=== PATIENT | male | born 1960 | race African-American/Black ===

== ENCOUNTER 2017-09-19 13:01 | Inpatient (IN) | payer OTHER ==
[2017-09-19 16:27] VITALS: BMI 24.3
--- NOTE | 2017-09-19 20:47 | HP ---
CIWA Score - CIWA Score Nausea/Vomitin-No Nausea/No Vomiting Muscle Tremors: None Anxiety: 4-Mod. Anxious/Guarded Agitation: 4-Moderately Restless Paroxysmal Sweats: 3 Orientation: 1-Uncertain about Date Tacttile Disturbances: 3-Moderate Itch/Numb/Burn Auditory Disturbances: 0-None Visual Disturbances: 0-None Headache: 0-None Present CIWA-Ar Total Score: 15 Admission ROS BHS - HPI Chief Complaint: C/O WITHDRAWAL SX'S. SEEKING DETOX FOR ALCOHOL DEPENDENCE Allergies/Adverse Reactions: Allergies Allergy/AdvReac Type Severity Reaction Status Date / Time No Known Allergies Allergy Verified 09/19/17 17:32 History of Present Illness: 57 Y.O. MALE WITH LONG HX/O ALCOHOLISM HERE FOR DETOX. SELF REFERRED. KNOWN TO THIS PROGRAM LAST HERE MANY YEARS AGO. DENIES ANY INPATIENT DETOX SERVICES THIS YEAR. REPORTS LONGEST CLEAN TIME 3 YEARS WHILE INCARCERATED. DENIES LEGALS Exam Limitations: No Limitations - Ebola screening Have you traveled outside of the country in the last 21 days: No Have you had contact with anyone from an Ebola affected area: No Have you been sick,other than usual withdrawal symptoms: No Do you have a fever: No - Review of Systems Constitutional: Chills, Loss of Appetite, Malaise, Night Sweats EENT: reports: No Symptoms Reported Respiratory: reports: No Symptoms reported Cardiac: reports: No Symptoms Reported GI: reports: Constipated, Poor Appetite, Poor Fluid Intake : reports: Other (NEUROGENIC BLADDER. SELF CATHETERIZES) Musculoskeletal: reports: Back Pain Integumentary: reports: No Symptoms Reported Neuro: reports: Other (NEUROGENIC BLADDER) Endocrine: reports: No Symptoms Reported Hematology: reports: No Symptoms Reported Psychiatric: reports: Depressed Other Systems: Reviewed and Negative Patient History - Patient Medical History Hx Anemia: No Hx Asthma: No Hx Chronic Obstructive Pulmonary Disease (COPD): No Hx Cancer: No Hx Cardiac Disorders: No (CONGENITAL HEART MURMUR) Hx Congestive Heart Failure: No Hx Hypertension: Yes Hx Hypercholesterolemia: No Hx Pacemaker: No HX Cerebrovascular Accident: No Hx Seizures: No Hx Dementia: No Hx Diabetes: No Hx Gastrointestinal Disorders: No Hx Liver Disease: No Hx Genitourinary Disorders: Yes (NEUROGENIC BLADDER REQUIRES SELF CATH) Hx Sexually Transmitted Disorders: Yes (HIV) Hx Renal Disease (ESRD): No Hx Thyroid Disease: No Hx Human Immunodeficiency Virus (HIV): Yes (1998) Hx Hepatitis C: No Hx Depression: Yes Hx Suicide Attempt: No Hx Bipolar Disorder: No Hx Schizophrenia: No Other Medical History: DENIES - Patient Surgical History Past Surgical History: Yes Hx Neurologic Surgery: Yes (Spinal sx from [facility]) Anesthesia Reaction: No - PPD History Previous Implant?: Yes Documented Results: Negative w/o proof Implanted On Prior [facility] Admission?: No PPD to be Administered?: Yes - Smoking Cessation Smoking history: Current every day smoker Aproximately how many cigarettes per day: 3 Cigars Per Day: 0 Hx Chewing Tobacco Use: No Initiated information on smoking cessation: Yes 'Breaking Loose' booklet given: 09/19/17 - Substance & Tx. History Hx Alcohol Use: Yes Hx Substance Use: Yes Substance Use Type: Alcohol, Cocaine Hx Substance Use Treatment: Yes ([facility]) - Substances Abused Alcohol Route: Oral Frequency: 3-6 times per week Amount used: fifth of vodka Age of first use: 14 Date of Last Use: 09/18/17 Crack Route: Smoking Frequency: 1-2 times per week Amount used: 20 bags Age of first use: 21 Date of Last Use: 09/17/17 Family Disease History - Family Disease History Family Disease History: Heart Disease: Father (), CA: Mother () Admission Physical Exam S - Vital Signs Vital Signs: Vital Signs - 24 hr 09/19/17 16:23 Temperature 96.4 F L Pulse Rate 64 Respiratory 20 Rate Blood Pressure 116/71 - Physical General Appearance: Yes: Appropriately Dressed, Irritable HEENTM: Yes: EOMI, Normocephalic, Normal Voice, GERTRUDE, Pharynx Normal Respiratory: Yes: Chest Non-Tender, Lungs Clear, Normal Breath Sounds, No Respiratory Distress, No Accessory Muscle Use Neck: Yes: No masses,lesions,Nodules, Supple, Trachea in good position Breast: Yes: Breast Exam Deferred Cardiology: Yes: Regular Rhythm, Regular Rate, S1, S2 Abdominal: Yes: Normal Bowel Sounds, Non Tender, Soft Genitourinary: Yes: Other (NEUROGENIC BLADDER. REQUIRING SELF CATH) Back: Yes: Normal Inspection Musculoskeletal: Yes: full range of Motion, Gait Steady Extremities: Yes: Normal Capillary Refill, Non-Tender, Other (L HAND FOURTH DIGIT CONTRACTED WITH LIMITED ROM) Neurological: Yes: Fully Oriented, Alert, Motor Strength 5/5 Integumentary: Yes: Normal Color, Dry, Warm Lymphatic: Yes: Within Normal Limits - Diagnostic (1) Alcohol dependence with uncomplicated withdrawal Current Visit: Yes Status: Chronic (2) Cocaine dependence, uncomplicated Current Visit: Yes Status: Chronic (3) Nicotine dependence Current Visit: Yes Status: Chronic Qualifiers: Nicotine product type: cigarettes Substance use status: uncomplicated Qualified Code(s): F17.210 - Nicotine dependence, cigarettes, uncomplicated (4) HIV (human immunodeficiency virus infection) Current Visit: Yes Status: Chronic (5) HTN (hypertension) Current Visit: Yes Status: Chronic Qualifiers: Hypertension type: essential hypertension Qualified Code(s): I10 - Essential (primary) hypertension (6) Neurogenic bladder Current Visit: Yes Status: Chronic (7) Self-catheterizes urinary bladder Current Visit: Yes Status: Chronic (8) Heart murmur Current Visit: Yes Status: Chronic (9) Constipation Current Visit: Yes Status: Chronic Qualifiers: Constipation type: unspecified constipation type Qualified Code(s): K59.00 - Constipation, unspecified Cleared for Admission [facility] - Detox or Rehab [facility] Level of Care: Medically Managed Detox Regimen/Protocol: Librium Claeared for Rehab Admission: No S Breath Alcohol Content Breath Alcohol Content: 0 Urine Drug Screen - Results Drug Screen Negative: No Urine Drug Screen Results: VICENTE-Cocaine
[2017-09-19] MEDS ORDERED: ACETAMINOPHEN 325 MG TABLET (FP) PO PRN (20:57)
[2017-09-19] MEDS ORDERED: hydrOXYzine PAMOATE 50 MG CAPSULE (FP) PO PRN (20:57)
[2017-09-19] MEDS ORDERED: P-EPHED 60MG/TRIPROLIDI 2.5MG TABLET PO PRN (20:57)
[2017-09-19] MEDS ORDERED: IBUPROFEN 400 MG TABLET (FP) PO PRN (20:57)
[2017-09-19] MEDS ORDERED: MAGNESIUM CITRATE 300 ML BOTTLE PO PRN (20:57)
[2017-09-19] MEDS ORDERED: MAG HYDROX/AL HYDROX/SIMETH 30 ML UNIT-DOSE CUP PO PRN (20:57)
[2017-09-19] MEDS ORDERED: NICOTINE POLACRILEX 4 MG GUM BC PRN (20:57)
[2017-09-19] MEDS ORDERED: guaiFENesin/D-METHORPHAN HB 10 ML UNIT-DOSE CUPS PO PRN (20:57)
[2017-09-19] MEDS ORDERED: LOPERAMIDE HCL 2 MG CAPSULE PO PRN (20:57)
[2017-09-19] MEDS ORDERED: chlordiazePOXIDE HCL 25 MG CAPSULE PO PRN (20:57)
[2017-09-19] MEDS ORDERED: MAGNESIUM HYDROX 2400MG/30ML ORAL SUSPENSION 30 ML CUP PO PRN (20:57)
[2017-09-19] MEDS ORDERED: MENTHOL/PHENOL 1 EACH UD MM PRN (20:57)
[2017-09-19] MEDS: THIAMINE HCL 100 MG TABLET (FP) PO SCH (21:56)
[2017-09-19] MEDS ORDERED: MELATONIN 5 MG TABLETS PO PRN (22:00)
[2017-09-19] MEDS: chlordiazePOXIDE HCL 25 MG CAPSULE PO SCH (22:04)
[2017-09-19] MEDS: DOCUSATE SODIUM 100 MG CAPSULE (FP) PO SCH (22:04)
[2017-09-20] MEDS: chlordiazePOXIDE HCL 25 MG CAPSULE PO SCH ×4 (06:03→22:23)
--- NOTE | 2017-09-20 09:48 | CONSULT ---
[facility] Psychiatric Consult - Data Date of interview: 09/20/17 Admission source: [facility] Identifying data: Pt. is a 57 year old single male, father of one, unemployed, living alone, and receiving SSI. This is patient's first admission to [facility]. Pt. admitted to for alcohol and cocaine dependence. Substance Abuse History: Following information confirmed with Mr. Morrison: Smoking Cessation. Smoking history: Current every day smoker. Aproximately how many cigarettes per day: 3. Cigars Per Day: 0. Hx Chewing Tobacco Use: No. Initiated information on smoking cessation: Yes. 'Breaking Loose' booklet given: 09/19/17. - Substance & Tx. History. Hx Alcohol Use: Yes. Hx Substance Use: Yes. Substance Use Type: Alcohol, Cocaine. Hx Substance Use Treatment: Yes ([facility]). - Substances Abused. Alcohol. Route: Oral. Frequency: 3-6 times per week. Amount used: fifth of vodka. Age of first use: 14. Date of Last Use: 09/18/17. Crack. Route: Smoking. Frequency: 1-2 times per week. Amount used: 20 bags. Age of first use: 21. Date of Last Use : 09/17/17 Medical History: Cogential heart murmur, neurogenic bladder requires self cath, spinal sx from [facility] Psychiatric History: Pt. denies h/o psychiatric hospitalization, outpatient treatment, and suicide attempts. Physical/Sexual Abuse/Trauma History: Denies. Mental Status Exam - Mental Status Exam Alert and Oriented to: Time, Place, Person Cognitive Function: Good Patient Appearance: Well Groomed Mood: Hopeful Affect: Appropriate Patient Behavior: Appropriate, Cooperative Speech Pattern: Clear, Appropriate Voice Loudness: Normal Thought Process: Goal Oriented Thought Disorder: Not Present Hallucinations: Denies Suicidal Ideation: Denies Homicidal Ideation: Denies Insight/Judgement: Poor Sleep: Fair Appetite: Fair Muscle strength/Tone: Normal Gait/Station: Normal Psychiatric Findings - Problem List ([place] 1, 2,3) (1) Alcohol dependence with uncomplicated withdrawal Current Visit: Yes Status: Chronic (2) Cocaine dependence, uncomplicated Current Visit: Yes Status: Chronic (3) Nicotine dependence Current Visit: Yes Status: Chronic Qualifiers: Nicotine product type: cigarettes Substance use status: uncomplicated Qualified Code(s): F17.210 - Nicotine dependence, cigarettes, uncomplicated (4) Substance induced mood disorder Current Visit: Yes Status: Suspected - Initial Treatment Plan Initial Treatment Plan: Psychoeducation provided. Detoxification provided. Observation.
[2017-09-20] MEDS: PRENATAL VITAMINS W/ FOLIC ACID TABLET (FP) PO SCH (10:13)
[2017-09-20] MEDS: NIFEdipine E.R 60 MG TABLET (UD) PO SCH (10:14)
[2017-09-20 10:29] LABS: HEMATOCRIT 36.6 % (35.4-49); HEMOGLOBIN 12.1 GM/dL (11.7-16.9); MCH 32.6 pg (25.7-33.7); MCHC 32.9 g/dl (32.0-35.9); MEAN CELL VOLUME 98.9 fl (80-96); MEAN PLT VOLUME 8.3 fl (7.5-11.1); PLATELET COUNT 313 K/MM3 (134-434); RDW 13.3 % (11.9-15.9); WHITE BLOOD COUNT 3.8 K/mm3 (4.0-10.0)
[2017-09-20 10:53] LABS: ALBUMIN 3.5 g/dl (3.4-5.0); ANION GAP 4 (8-16); BLOOD UREA NITROGEN 19 mg/dL (7-18); CALCIUM 8.8 mg/dL (8.5-10.1); CHLORIDE 108 mmol/L (98-107); CO2 30 mmol/L (21-32); GLUCOSE,RANDOM 110 mg/dL (74-106); POTASSIUM 3.7 mmol/L (3.5-5.1); SGPT/ALT 24 U/L (12-78); SODIUM 142 mmol/L (136-145)
[2017-09-20 11:00] LABS: ALK PHOS 63 U/L (45-117); CREATININE 1.1 mg/dL (0.7-1.3); SGOT/AST 17 U/L (15-37); TOT PROT 7.4 g/dl (6.4-8.2)
[2017-09-20 11:08] LABS: BILIRUBIN,TOTAL < 0.1 mg/dL (0.2-1.0)
--- NOTE | 2017-09-20 13:31 | EKG ---
Test Reason : Blood Pressure : / mmHG Vent. Rate : 055 BPM Atrial Rate : 055 BPM P-R Int : 146 ms QRS Dur : 092 ms QT Int : 410 ms P-R-T Axes : 051 040 049 degrees QTc Int : 392 ms SINUS BRADYCARDIA POSSIBLE LEFT ATRIAL ENLARGEMENT BORDERLINE ECG NO PREVIOUS ECGS AVAILABLE Confirmed by YOANA BENEDICT MD ([id number]) on 09/20/2017 1:31:26 PM Referred By: Confirmed By:YOANA BENEDICT MD
[2017-09-20] MEDS: AMMONIUM LACTATE 12% LOTION 225 GM BOTTLE TP SCH ×2 (13:42→22:24)
--- NOTE | 2017-09-20 15:28 | PN ---
[facility] CIWA - CIWA Score Nausea/Vomitin-No Nausea/No Vomiting Muscle Tremors: 2 Anxiety: 4-Mod. Anxious/Guarded Agitation: 3 Paroxysmal Sweats: 3 Orientation: 0-Oriented Tacttile Disturbances: 3-Moderate Itch/Numb/Burn Auditory Disturbances: 1-Very Mild Visual Disturbances: 2-Mild Sensitivity Headache: 0-None Present CIWA-Ar Total Score: 18 BHS Progress Note (SOAP) Subjective: Constipation, Sweating, Itching, Anxious. Objective: PATIENT A & O X 3, OBSERVED AMBULATING ON UNIT. NO ACUTE DISTRESS. 09/20/17 15:26 Vital Signs Temperature 96.1 F L 09/20/17 13:10 Pulse Rate 67 09/20/17 13:10 Respiratory Rate 18 09/20/17 13:10 Blood Pressure 106/66 09/20/17 13:10 O2 Sat by Pulse Oximetry (%) Laboratory Tests 09/20/17 09/20/17 07:00 07:00 WBC 3.8 L RBC 3.70 L Hgb 12.1 Hct 36.6 MCV 98.9 H MCH 32.6 MCHC 32.9 RDW 13.3 Plt Count 313 MPV 8.3 Sodium 142 Potassium 3.7 Chloride 108 H Carbon Dioxide 30 Anion Gap 4 L BUN 19 H Creatinine 1.1 Creat Clearance w eGFR > 60 Random Glucose 110 H Calcium 8.8 Total Bilirubin < 0.1 L AST 17 ALT 24 Alkaline Phosphatase 63 Total Protein 7.4 Albumin 3.5 LABS NOTED. RPR, UA RESULTS PENDING. 09/20/17 15:27 Assessment: 09/20/17 15:26 WITHDRAWAL SYMPTOMS. Plan: CONTINUE DETOX. PRN MOM FOR CONSTIPATION. INCREASE DAILY PO FLUID INTAKE.
[2017-09-20] MEDS: THIAMINE HCL 100 MG TABLET (FP) PO SCH (22:23)
[2017-09-20] MEDS: DOCUSATE SODIUM 100 MG CAPSULE (FP) PO SCH (22:23)
[2017-09-21] MEDS: chlordiazePOXIDE HCL 25 MG CAPSULE PO SCH ×3 (05:22→19:13)
[2017-09-21 09:54] LABS: URINE APPEARANCE CLEAR; URINE BILIRUBIN NEGATIVE (<2.0 mg/dL); URINE BLOOD NEGATIVE (NEGATIVE); URINE COLOR STRAW; URINE GLUCOSE (UA) NEGATIVE (NEGATIVE); URINE KETONE NEGATIVE (NEGATIVE); URINE LEUK ESTERASE NEGATIVE (NEGATIVE); URINE NITRITE NEGATIVE (NEGATIVE); URINE PROTEIN NEGATIVE (NEGATIVE); URINE UROBILINOGEN NEGATIVE mg/dL (0.2-1.0)
[2017-09-21] MEDS: PRENATAL VITAMINS W/ FOLIC ACID TABLET (FP) PO SCH (10:25)
[2017-09-21] MEDS: AMMONIUM LACTATE 12% LOTION 225 GM BOTTLE TP SCH ×2 (10:25→22:22)
[2017-09-21] MEDS: NIFEdipine E.R 60 MG TABLET (UD) PO SCH (10:25)
--- NOTE | 2017-09-21 13:44 | PN ---
S CIWA - CIWA Score Nausea/Vomitin-No Nausea/No Vomiting Muscle Tremors: 2 Anxiety: 3 Agitation: 2 Paroxysmal Sweats: 3 Orientation: 0-Oriented Tacttile Disturbances: 2-Mild Itch/Numbness/Burn Auditory Disturbances: 0-None Visual Disturbances: 2-Mild Sensitivity Headache: 0-None Present CIWA-Ar Total Score: 14 BHS Progress Note (SOAP) Subjective: Sweating, Fatigue, Anxious, Tremors. Objective: PATIENT A & O X 3. NO ACUTE DISTRESS. 09/21/17 13:42 Vital Signs Temperature 97.3 F L 09/21/17 09:07 Pulse Rate 70 09/21/17 09:07 Respiratory Rate 16 09/21/17 09:07 Blood Pressure 106/64 09/21/17 09:07 O2 Sat by Pulse Oximetry (%) Laboratory Tests 09/20/17 09/20/17 09/20/17 07:00 07:00 07:00 WBC 3.8 L RBC 3.70 L Hgb 12.1 Hct 36.6 MCV 98.9 H MCH 32.6 MCHC 32.9 RDW 13.3 Plt Count 313 MPV 8.3 Sodium 142 Potassium 3.7 Chloride 108 H Carbon Dioxide 30 Anion Gap 4 L BUN 19 H Creatinine 1.1 Creat Clearance w eGFR > 60 Random Glucose 110 H Calcium 8.8 Total Bilirubin < 0.1 L AST 17 ALT 24 Alkaline Phosphatase 63 Total Protein 7.4 Albumin 3.5 Urine Color Urine Appearance Urine pH Ur Specific [place] Urine Protein Urine Glucose (UA) Urine Ketones Urine Blood Urine Nitrite Urine Bilirubin Urine Urobilinogen Ur Leukocyte Esterase RPR Titer Nonreactive 09/21/17 08:00 WBC RBC Hgb Hct MCV MCH MCHC RDW Plt Count MPV Sodium Potassium Chloride Carbon Dioxide Anion Gap BUN Creatinine Creat Clearance w eGFR Random Glucose Calcium Total Bilirubin AST ALT Alkaline Phosphatase Total Protein Albumin Urine Color Straw Urine Appearance Clear Urine pH 5.0 Ur Specific [place] 1.015 Urine Protein Negative Urine Glucose (UA) Negative Urine Ketones Negative Urine Blood Negative Urine Nitrite Negative Urine Bilirubin Negative Urine Urobilinogen Negative Ur Leukocyte Esterase Negative RPR Titer LABS NOTED. Assessment: 09/21/17 13:43 WITHDRAWAL SYMPTOMS. Plan: CONTINUE DETOX.
[2017-09-21] MEDS: THIAMINE HCL 100 MG TABLET (FP) PO SCH (22:21)
[2017-09-21] MEDS: chlordiazePOXIDE 5 MG CAPSULE PO SCH (22:21)
[2017-09-21] MEDS: DOCUSATE SODIUM 100 MG CAPSULE (FP) PO SCH (22:22)
[2017-09-22] MEDS: chlordiazePOXIDE 5 MG CAPSULE PO SCH ×3 (06:17→17:38)
[2017-09-22] MEDS: NIFEdipine E.R 60 MG TABLET (UD) PO SCH (10:45)
[2017-09-22] MEDS: PRENATAL VITAMINS W/ FOLIC ACID TABLET (FP) PO SCH (10:45)
[2017-09-22] MEDS: AMMONIUM LACTATE 12% LOTION 225 GM BOTTLE TP SCH ×2 (10:46→22:25)
--- NOTE | 2017-09-22 16:00 | PN ---
BHS Progress Note (SOAP) Subjective: Anxious, Fatigue. Objective: PATIENT A & O X 3, OBSERVED AMBULATING ON UNIT. NO ACUTE DISTRESS. 09/22/17 15:57 Vital Signs Temperature 96.5 F L 09/22/17 11:18 Pulse Rate 79 09/22/17 11:18 Respiratory Rate 18 09/22/17 11:18 Blood Pressure 120/71 09/22/17 11:18 O2 Sat by Pulse Oximetry (%) Laboratory Tests 09/20/17 09/20/17 09/20/17 07:00 07:00 07:00 WBC 3.8 L RBC 3.70 L Hgb 12.1 Hct 36.6 MCV 98.9 H MCH 32.6 MCHC 32.9 RDW 13.3 Plt Count 313 MPV 8.3 Sodium 142 Potassium 3.7 Chloride 108 H Carbon Dioxide 30 Anion Gap 4 L BUN 19 H Creatinine 1.1 Creat Clearance w eGFR > 60 Random Glucose 110 H Calcium 8.8 Total Bilirubin < 0.1 L AST 17 ALT 24 Alkaline Phosphatase 63 Total Protein 7.4 Albumin 3.5 Urine Color Urine Appearance Urine pH Ur Specific [place] Urine Protein Urine Glucose (UA) Urine Ketones Urine Blood Urine Nitrite Urine Bilirubin Urine Urobilinogen Ur Leukocyte Esterase RPR Titer Nonreactive 09/21/17 08:00 WBC RBC Hgb Hct MCV MCH MCHC RDW Plt Count MPV Sodium Potassium Chloride Carbon Dioxide Anion Gap BUN Creatinine Creat Clearance w eGFR Random Glucose Calcium Total Bilirubin AST ALT Alkaline Phosphatase Total Protein Albumin Urine Color Straw Urine Appearance Clear Urine pH 5.0 Ur Specific [place] 1.015 Urine Protein Negative Urine Glucose (UA) Negative Urine Ketones Negative Urine Blood Negative Urine Nitrite Negative Urine Bilirubin Negative Urine Urobilinogen Negative Ur Leukocyte Esterase Negative RPR Titer LABS NOTED. Assessment: 09/22/17 15:58 WITHDRAWAL SYMPTOMS. Plan: CONTINUE DETOX. INCREASE DAILY PO FLUID INTAKE.
[2017-09-22] MEDS: THIAMINE HCL 100 MG TABLET (FP) PO SCH (22:24)
[2017-09-22] MEDS: chlordiazePOXIDE HCL 10 MG CAPSULE PO SCH (22:25)
[2017-09-22] MEDS: DOCUSATE SODIUM 100 MG CAPSULE (FP) PO SCH (22:25)
[2017-09-23 06:13] VITALS: BP 102/61; PULSE 66; TEMP 97.1
[2017-09-23] MEDS: chlordiazePOXIDE HCL 10 MG CAPSULE PO SCH (06:42)
--- NOTE | 2017-09-23 08:56 | DS ---
[facility] Detox Discharge Summary Admission Date: 09/19/17 Discharge Date: 09/23/17 - History Present History: Alcohol Dependence, Cocaine Dependence - Physical Exam Results Vital Signs: Vital Signs Temperature 97.1 F L 09/23/17 06:12 Pulse Rate 66 09/23/17 06:12 Respiratory Rate 09/23/17 06:12 Blood Pressure 102/61 09/23/17 06:12 O2 Sat by Pulse Oximetry (%) - Treatment Hospital Course: Detox Protocol Followed, Detoxed Safely, Responded well, Discharged Condition Good, Rehab Referral Accepted - Medication Discharge Medications: Ambulatory Orders Elviteg/Cob/Emtri/Tenof Alafen [Genvoya Tablet] 1 each PO DAILY 09/19/17 Mv-Mn/FA/Coq10/Lycopene/Lutein [Theragran-M Premier 50+ Caplet] 1 each PO DAILY 09/19/17 Nifedipine ER [Procardia Xl -] 60 mg PO DAILY 09/19/17 - Diagnosis (1) Alcohol dependence with uncomplicated withdrawal Current Visit: Yes Status: Chronic (2) Cocaine dependence, uncomplicated Current Visit: Yes Status: Chronic (3) Constipation Current Visit: Yes Status: Chronic Qualifiers: Constipation type: unspecified constipation type Qualified Code(s): K59.00 - Constipation, unspecified (4) HIV (human immunodeficiency virus infection) Current Visit: Yes Status: Chronic (5) HTN (hypertension) Current Visit: Yes Status: Chronic Qualifiers: Hypertension type: essential hypertension Qualified Code(s): I10 - Essential (primary) hypertension (6) Heart murmur Current Visit: Yes Status: Chronic (7) Neurogenic bladder Current Visit: Yes Status: Chronic (8) Nicotine dependence Current Visit: Yes Status: Chronic Qualifiers: Nicotine product type: cigarettes Substance use status: uncomplicated Qualified Code(s): F17.210 - Nicotine dependence, cigarettes, uncomplicated (9) Self-catheterizes urinary bladder Current Visit: Yes Status: Chronic (10) Substance induced mood disorder Current Visit: Yes Status: Suspected - AMA Did Patient Leave Against Medical Advice: No
== END 2017-09-23 09:44 | disposition home or self-care (01) | DRG 774 ==
LOC: YASAS 13:01 → Y3N 18:19
PROVIDERS: ADMIT Internal Medicine; ATTEND Internal Medicine
PROC: HZ2ZZZZ Detoxification Services for Substance Abuse Treatment (ICD-10-PCS; principal; 2017-09-19)
DX: F10.230 Alcohol dependence with withdrawal, uncomplicated (principal); F14.20 Cocaine dependence, uncomplicated; F17.210 Nicotine dependence, cigarettes, uncomplicated; F19.24 Other psychoactive substance dependence with psychoactive substance-induced mood disorder; I10 Essential (primary) hypertension; K59.00 Constipation, unspecified; R01.1 Cardiac murmur, unspecified; N31.9 Neuromuscular dysfunction of bladder, unspecified; Z78.9 Other specified health status; F32.9 Major depressive disorder, single episode, unspecified
CPT/HCPCS: 36415; 80053; 81003; 85027; 86593; 93005; 93010

== ENCOUNTER 2018-09-20 10:53 | Inpatient (IN) | payer OTHER ==
[2018-09-20 11:17] VITALS: BMI 24.7
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
[2018-09-20] MEDS ORDERED: MENTHOL/PHENOL 1 EACH UD MM PRN (13:52)
[2018-09-20] MEDS ORDERED: MELATONIN 5 MG TABLETS PO PRN (13:52)
[2018-09-20] MEDS ORDERED: METHOCARBAMOL 500 MG TABLET PO PRN (13:52)
[2018-09-20] MEDS ORDERED: diazePAM 5 MG TABLET PO PRN (13:52)
[2018-09-20] MEDS ORDERED: MAGNESIUM HYDROX 2400MG/30ML ORAL SUSPENSION 30 ML CUP PO PRN (13:52)
[2018-09-20] MEDS ORDERED: MAG HYDROX/AL HYDROX/SIMETH 30 ML UNIT-DOSE CUP PO PRN (13:52)
[2018-09-20] MEDS ORDERED: MAGNESIUM CITRATE 300 ML BOTTLE PO PRN (13:52)
[2018-09-20] MEDS ORDERED: BISMUTH SUBSALICYLATE 262 MG/15 ML BTL PO PRN (13:52)
[2018-09-20] MEDS ORDERED: NICOTINE POLACRILEX 2 MG GUM BUC PRN (13:52)
[2018-09-20] MEDS ORDERED: ACETAMINOPHEN 325 MG TABLET (FP) PO PRN ×2 (13:52)
[2018-09-20] MEDS: NIFEdipine E.R 60 MG TABLET (UD) PO SCH (15:31)
[2018-09-20] MEDS: diazePAM 5 MG TABLET PO SCH ×2 (15:31→22:24)
[2018-09-20] MEDS: diazePAM 5 MG TABLET PO ONE (15:34)
[2018-09-20] MEDS: IBUPROFEN 400 MG TABLET (FP) PO PRN (17:43)
[2018-09-20] MEDS: THIAMINE HCL 100 MG TABLET (FP) PO SCH (22:24)
[2018-09-21] MEDS: diazePAM 5 MG TABLET PO SCH ×3 (05:24→22:26)
[2018-09-21] MEDS: PRENATAL VITAMINS W/ FOLIC ACID TABLET (FP) PO SCH (10:10)
[2018-09-21] MEDS: NIFEdipine E.R 60 MG TABLET (UD) PO SCH (10:10)
[2018-09-21] MEDS: IBUPROFEN 400 MG TABLET (FP) PO PRN ×2 (10:12→22:27)
[2018-09-21 11:02] LABS: MCHC 33.2 g/dl (32.0-35.9); MEAN CELL VOLUME 96.6 fl (80-96); MEAN PLT VOLUME 8.4 fl (7.5-11.1); PLATELET COUNT 295 K/MM3 (134-434); RBC 3.42 M/mm3 (4.00-5.60); RDW 14.3 % (11.9-15.9); WHITE BLOOD COUNT 4.4 K/mm3 (4.0-10.0)
[2018-09-21 11:03] LABS: ALBUMIN 2.9 g/dl (3.4-5.0); ALK PHOS 72 U/L (45-117); ANION GAP 4 MMOL/L (8-16); BILIRUBIN,TOTAL 0.1 mg/dL (0.2-1); BLOOD UREA NITROGEN 15 mg/dL (7-18); CALCIUM 8.4 mg/dL (8.5-10.1); CHLORIDE 107 mmol/L (98-107); CO2 30 mmol/L (21-32); GLUCOSE,RANDOM 106 mg/dL (74-106); POTASSIUM 3.5 mmol/L (3.5-5.1); SGOT/AST 21 U/L (15-37); SGPT/ALT 23 U/L (13-61); SODIUM 141 mmol/L (136-145); TOT PROT 6.2 g/dl (6.4-8.2)
--- NOTE | 2018-09-21 13:37 | PN ---
[facility] CIWA - CIWA Score Nausea/Vomitin-No Nausea/No Vomiting Muscle Tremors: None Anxiety: 4-Mod. Anxious/Guarded Agitation: 0-Normal Activity Paroxysmal Sweats: 3 Orientation: 0-Oriented Tacttile Disturbances: 2-Mild Itch/Numbness/Burn Auditory Disturbances: 2-Mild Harshness/Frighten Visual Disturbances: 0-None Headache: 0-None Present CIWA-Ar Total Score: 11 S Progress Note (SOAP) Subjective: Anxious, Sweating, Fatigue. Objective: PATIENT A & O X 3, OBSERVED AMBULATING ON UNIT. IN NO ACUTE DISTRESS. 09/21/18 13:38 Vital Signs Temperature 97.3 F L 09/21/18 09:30 Pulse Rate 83 09/21/18 09:30 Respiratory Rate 18 09/21/18 09:30 Blood Pressure 117/78 09/21/18 09:30 O2 Sat by Pulse Oximetry (%) Laboratory Tests 09/21/18 09/21/18 09/21/18 07:30 07:30 07:30 WBC 4.4 RBC 3.42 L Hgb 11.0 L Hct 33.0 L MCV 96.6 H MCH 32.0 MCHC 33.2 RDW 14.3 Plt Count 295 MPV 8.4 Sodium 141 Potassium 3.5 Chloride 107 Carbon Dioxide 30 Anion Gap 4 L BUN 15 Creatinine 1.0 Creat Clearance w eGFR 76.75 Random Glucose 106 Calcium 8.4 L Total Bilirubin 0.1 L AST 21 ALT 23 Alkaline Phosphatase 72 Total Protein 6.2 L Albumin 2.9 L RPR Titer Nonreactive LABS NOTED. Assessment: 09/21/18 13:39 WITHDRAWAL SYMPTOMS. ANEMIA. Plan: CONTINUE DETOX. PATIENT IS CURRENTLY RECEIVING DAILY MVI CONTAINING B VITAMINS AND IRON WHILE ADMITTED FOR DETOX.
[2018-09-21] MEDS: THIAMINE HCL 100 MG TABLET (FP) PO SCH (22:26)
[2018-09-22] MEDS: diazePAM 5 MG TABLET PO ONE (05:18)
[2018-09-22] MEDS: PRENATAL VITAMINS W/ FOLIC ACID TABLET (FP) PO SCH (10:19)
[2018-09-22] MEDS: NIFEdipine E.R 60 MG TABLET (UD) PO SCH (10:20)
--- NOTE | 2018-09-22 11:43 | PN ---
S CIWA - CIWA Score Nausea/Vomitin-Mild Nausea/No Vomiting Muscle Tremors: 2 Anxiety: 1-Mildly Anxious Agitation: 2 Paroxysmal Sweats: 1-Minimal Palms Moist Orientation: 0-Oriented Tacttile Disturbances: 0-None Auditory Disturbances: 0-None Visual Disturbances: 0-None Headache: 0-None Present CIWA-Ar Total Score: 7 S Progress Note (SOAP) Subjective: patient agrees to return to infectious disease specialist for following up care Objective: 09/22/18 11:43 Vital Signs Temperature 97.8 F 09/22/18 09:29 Pulse Rate 76 09/22/18 09:29 Respiratory Rate 18 09/22/18 09:29 Blood Pressure 119/86 09/22/18 09:29 O2 Sat by Pulse Oximetry (%) Laboratory Last Values WBC 4.4 K/mm3 (4.0-10.0) 09/21/18 07:30 RBC 3.42 M/mm3 (4.00-5.60) L 09/21/18 07:30 Hgb 11.0 GM/dL (11.7-16.9) L 09/21/18 07:30 Hct 33.0 % (35.4-49) L 09/21/18 07:30 MCV 96.6 fl (80-96) H 09/21/18 07:30 MCH 32.0 pg (25.7-33.7) 09/21/18 07:30 MCHC 33.2 g/dl (32.0-35.9) 09/21/18 07:30 RDW 14.3 % (11.9-15.9) 09/21/18 07:30 Plt Count 295 K/MM3 (134-434) 09/21/18 07:30 MPV 8.4 fl (7.5-11.1) 09/21/18 07:30 Sodium 141 mmol/L (136-145) 09/21/18 07:30 Potassium 3.5 mmol/L (3.5-5.1) 09/21/18 07:30 Chloride 107 mmol/L (98-107) 09/21/18 07:30 Carbon Dioxide 30 mmol/L (21-32) 09/21/18 07:30 Anion Gap 4 MMOL/L (8-16) L 09/21/18 07:30 BUN 15 mg/dL (7-18) 09/21/18 07:30 Creatinine 1.0 mg/dL (0.55-1.3) 09/21/18 07:30 Creat Clearance w eGFR 76.75 (>60) 09/21/18 07:30 Random Glucose 106 mg/dL (74-106) 09/21/18 07:30 Calcium 8.4 mg/dL (8.5-10.1) L 09/21/18 07:30 Total Bilirubin 0.1 mg/dL (0.2-1) L 09/21/18 07:30 AST 21 U/L (15-37) 09/21/18 07:30 ALT 23 U/L (13-61) 09/21/18 07:30 Alkaline Phosphatase 72 U/L (45-117) 09/21/18 07:30 Total Protein 6.2 g/dl (6.4-8.2) L 09/21/18 07:30 Albumin 2.9 g/dl (3.4-5.0) L 09/21/18 07:30 RPR Titer Nonreactive (NONREACTIVE) 09/21/18 07:30 lab noted Assessment: 09/22/18 11:43 withdrawal sx Plan: continue detox
[2018-09-22] MEDS: THIAMINE HCL 100 MG TABLET (FP) PO SCH (22:29)
[2018-09-22] MEDS: CLOTRIMAZOLE 1% CREAM 15 GM TUBE TP SCH (23:15)
[2018-09-23] MEDS: NIFEdipine E.R 60 MG TABLET (UD) PO SCH (10:10)
[2018-09-23] MEDS: PRENATAL VITAMINS W/ FOLIC ACID TABLET (FP) PO SCH (10:10)
[2018-09-23] MEDS: CLOTRIMAZOLE 1% CREAM 15 GM TUBE TP SCH (10:11)
[2018-09-23] MEDS: IBUPROFEN 400 MG TABLET (FP) PO PRN (10:11)
--- NOTE | 2018-09-23 13:04 | DS ---
[facility] Detox Discharge Summary Admission Date: 09/20/18 Discharge Date: 09/23/18 - History Present History: Alcohol Dependence Additional Comments: 58 years old male admitted on 09/20/18 for alcohol withdrawal stabilization completed detox regimen aftercare [facility] Pertinent Past History: bring in medication list and lab report to aftercare appointment - Physical Exam Results Vital Signs: Vital Signs Temperature 97.7 F 09/23/18 09:04 Pulse Rate 83 09/23/18 09:04 Respiratory Rate 16 09/23/18 09:04 Blood Pressure 112/76 09/23/18 09:04 O2 Sat by Pulse Oximetry (%) Pertinent Admission Physical Exam Findings: alcohol withdrawal sx Laboratory Last Values WBC 4.4 K/mm3 (4.0-10.0) 09/21/18 07:30 RBC 3.42 M/mm3 (4.00-5.60) L 09/21/18 07:30 Hgb 11.0 GM/dL (11.7-16.9) L 09/21/18 07:30 Hct 33.0 % (35.4-49) L 09/21/18 07:30 MCV 96.6 fl (80-96) H 09/21/18 07:30 MCH 32.0 pg (25.7-33.7) 09/21/18 07:30 MCHC 33.2 g/dl (32.0-35.9) 09/21/18 07:30 RDW 14.3 % (11.9-15.9) 09/21/18 07:30 Plt Count 295 K/MM3 (134-434) 09/21/18 07:30 MPV 8.4 fl (7.5-11.1) 09/21/18 07:30 Sodium 141 mmol/L (136-145) 09/21/18 07:30 Potassium 3.5 mmol/L (3.5-5.1) 09/21/18 07:30 Chloride 107 mmol/L (98-107) 09/21/18 07:30 Carbon Dioxide 30 mmol/L (21-32) 09/21/18 07:30 Anion Gap 4 MMOL/L (8-16) L 09/21/18 07:30 BUN 15 mg/dL (7-18) 09/21/18 07:30 Creatinine 1.0 mg/dL (0.55-1.3) 09/21/18 07:30 Creat Clearance w eGFR 76.75 (>60) 09/21/18 07:30 Random Glucose 106 mg/dL (74-106) 09/21/18 07:30 Calcium 8.4 mg/dL (8.5-10.1) L 09/21/18 07:30 Total Bilirubin 0.1 mg/dL (0.2-1) L 09/21/18 07:30 AST 21 U/L (15-37) 09/21/18 07:30 ALT 23 U/L (13-61) 09/21/18 07:30 Alkaline Phosphatase 72 U/L (45-117) 09/21/18 07:30 Total Protein 6.2 g/dl (6.4-8.2) L 09/21/18 07:30 Albumin 2.9 g/dl (3.4-5.0) L 09/21/18 07:30 RPR Titer Nonreactive (NONREACTIVE) 09/21/18 07:30 lab noted patient agrees to return to infectious disease specialist for follow up - Treatment Hospital Course: Detox Protocol Followed, Detoxed Safely, Responded well, Discharged Condition Good, Rehab Referral Accepted Patient has Accepted a Rehab Referral to: [facility] - Medication Discharge Medications: Ambulatory Orders Elviteg/Cob/Emtri/Tenof Alafen [Genvoya Tablet] 1 each PO DAILY 09/19/17 Nifedipine ER [Procardia XL -] 60 mg PO DAILY 09/19/17 - Diagnosis (1) Alcohol dependence with uncomplicated withdrawal Current Visit: Yes Status: Acute (2) HIV (human immunodeficiency virus infection) Current Visit: Yes Status: Chronic Qualifiers: HIV symptom status: asymptomatic Qualified Code(s): Z21 - Asymptomatic human immunodeficiency virus [HIV] infection status (3) HTN (hypertension) Current Visit: Yes Status: Chronic Qualifiers: Hypertension type: essential hypertension Qualified Code(s): I10 - Essential (primary) hypertension (4) Nicotine dependence Current Visit: Yes Status: Acute Qualifiers: Nicotine product type: cigarettes Substance use status: in withdrawal Qualified Code(s): F17.213 - Nicotine dependence, cigarettes, with withdrawal (5) Substance induced mood disorder Current Visit: Yes Status: Suspected - AMA Did Patient Leave Against Medical Advice: No
[2018-09-23 13:14] VITALS: BP 104/61; PULSE 68; TEMP 98.1
== END 2018-09-23 14:15 | disposition home or self-care (01) | DRG 774 ==
LOC: YASAS 10:53 → Y3N 14:08
PROVIDERS: ADMIT Surgery; ATTEND Surgery
PROC: HZ2ZZZZ Detoxification Services for Substance Abuse Treatment (ICD-10-PCS; principal; 2018-09-20)
DX: F10.230 Alcohol dependence with withdrawal, uncomplicated (principal); F14.20 Cocaine dependence, uncomplicated; F17.213 Nicotine dependence, cigarettes, with withdrawal; F19.24 Other psychoactive substance dependence with psychoactive substance-induced mood disorder; Z21 Asymptomatic human immunodeficiency virus [HIV] infection status; I10 Essential (primary) hypertension; N31.8 Other neuromuscular dysfunction of bladder; Z96.0 Presence of urogenital implants
CPT/HCPCS: 36415; 80053; 85027; 86593

== ENCOUNTER 2019-03-28 12:33 | Inpatient (IN) | payer OTHER ==
[2019-03-28 13:44] VITALS: BMI 23.7
--- NOTE | 2019-03-28 16:12 | HP ---
CIWA Score Nausea/Vomitin-No Nausea/No Vomiting Muscle Tremors: None Anxiety: 1-Mildly Anxious Agitation: 0-Normal Activity Paroxysmal Sweats: No Perspiration Orientation: 0-Oriented Tacttile Disturbances: 0-None Auditory Disturbances: 0-None Visual Disturbances: 0-None Headache: 0-None Present CIWA-Ar Total Score: 1 - Admission Criteria OASAS Guidelines: Admission for Medically Managed Detox: Requires at least one of the followin. CIWA greater than 12 2. Seizures within the past 24 hours 3. Delirium tremens within the past 24 hours 4. Hallucinations within the past 24 hours 5. Acute intervention needed for co occurring medical disorder 6. Acute intervention needed for co occurring psychiatric disorder 7. Severe withdrawal that cannot be handled at a lower level of care (continued vomiting, continued diarrhea, abnormal vital signs) requiring intravenous medication and/or fluids 8. Admitting History and Physical - Smoking History Smoking history: Current every day smoker Aproximately how many cigarettes per day: 3 - Alcohol/Substance Use Hx Alcohol Use: Yes Admission ROS [facility] Chief Complaint: Ronn Morrison is a 58 year old male presenting for alcohol and cocaine abuse. Allergies/Adverse Reactions: Allergies Allergy/AdvReac Type Severity Reaction Status Date / Time No Known Allergies Allergy Verified 03/28/19 13:36 History of Present Illness: Ronn Morrison is a 58 year old male presenting for alcohol and cocaine abuse. Alcohol: 1 pint and 2-3 (24oz) cans per day. Drink every other day. Has been drinking like this for the last 4 months, started drinking more due to problems with his girlfriend. Last drink was last night. Denies seizures, blackouts, falls, head hits. Longest period of sobriety: 3 years, during incarcerated. Started drinking again some time after release. Cocaine: twice a week. Does not buy, is given it. Smoking, inhalation. Denies IVDU. Has been to detox and rehab in the past. Medical History: HTN, HIV + (CD4 800, viral load undetectable in November) care through [facility], neurogenic bladder from [facility] Surgical History: denies Psychiatric History: denies Smoking: former smoker Social: lives alone. In contact with family. Has 1 son. Utox: VICENTE REAGN: 0.000 Will be admitted for inpatient rehab. Does not meet detox criteria. Necessitates inpatient rehab due to previous failure of outpatient and self- treatment. Requires medical management of chronic medical conditions. Counseled to speak with counselor about options after completing rehab. Exam Limitations: No Limitations - Ebola screening Have you traveled outside of the country in the last 21 days: No Have you had contact with anyone from an Ebola affected area: No Do you have a fever: No - Review of Systems Constitutional: No Symptoms Reported EENT: reports: No Symptoms Reported Respiratory: reports: No Symptoms reported Cardiac: reports: No Symptoms Reported GI: reports: Constipated : reports: Other (neurogenic bladder) Musculoskeletal: reports: Back Pain Integumentary: reports: No Symptoms Reported Neuro: reports: No Symptoms reported Endocrine: reports: No Symptoms Reported Hematology: reports: No Symptoms Reported Psychiatric: reports: Anxious Patient History - Patient Medical History Hx Anemia: No Hx Asthma: No Hx Chronic Obstructive Pulmonary Disease (COPD): No Hx Cancer: No Hx Cardiac Disorders: No (CONGENITAL HEART MURMUR) Hx Congestive Heart Failure: No Hx Hypertension: Yes Hx Hypercholesterolemia: No Hx Pacemaker: No HX Cerebrovascular Accident: No Hx Seizures: No Hx Dementia: No Hx Diabetes: No Hx Gastrointestinal Disorders: No Hx Liver Disease: No Hx Genitourinary Disorders: Yes (NEUROGENIC BLADDER REQUIRES SELF CATH) Hx Sexually Transmitted Disorders: Yes (HIV) Hx Renal Disease (ESRD): No Hx Thyroid Disease: No Hx Human Immunodeficiency Virus (HIV): Yes (1998) Hx Hepatitis C: No Hx Depression: Yes Hx Suicide Attempt: No Hx Bipolar Disorder: No Hx Schizophrenia: No - Patient Surgical History Past Surgical History: Yes Hx Neurologic Surgery: Yes (Spinal sx from [facility]) Anesthesia Reaction: No - PPD History Previous Implant?: Yes Documented Results: Negative w/o proof Implanted On Prior R Admission?: Yes Date: 09/21/17 Results: 0 mm PPD to be Administered?: Yes - Smoking Cessation Smoking history: Current every day smoker Have you smoked in the past 12 months: Yes Aproximately how many cigarettes per day: 3 Cigars Per Day: 0 Hx Chewing Tobacco Use: No Initiated information on smoking cessation: Yes 'Breaking Loose' booklet given: 03/28/19 - Substance & Tx. History Hx Alcohol Use: Yes Hx Substance Use: Yes Substance Use Type: Alcohol, Cocaine - Substances abused Alcohol Substance route: Oral Frequency: Daily Amount used: 1 pt. vodka, 12 cans beers (22 oz) Age of first use: 15 Date of last use: 03/27/19 Cocaine Substance route: Inhalation Frequency: Daily Amount used: I DONT KNOW Age of first use: 21 Date of last use: 03/26/19 Admission Physical Exam [facility] - Vital Signs Vital Signs: Vital Signs - 24 hr 03/28/19 13:41 Temperature 98.8 F Pulse Rate 73 Respiratory 16 Rate Blood Pressure 143/79 - Physical General Appearance: Yes: Disheveled, Mild Distress HEENTM: Yes: EOMI, Normocephalic, Normal Voice, GERTRUDE, Pharynx Normal Respiratory: Yes: Chest Non-Tender, Lungs Clear, Normal Breath Sounds, No Respiratory Distress, No Accessory Muscle Use Neck: Yes: No masses,lesions,Nodules, Trachea in good position Breast: Yes: Breast Exam Deferred Cardiology: Yes: Regular Rhythm, Regular Rate, S1, S2 Abdominal: Yes: Normal Bowel Sounds, Non Tender, Flat, Soft Genitourinary: Yes: Hesitency (secondary to neurgenic bladder requiring intermittent catheterization) Back: Yes: Normal Inspection Musculoskeletal: Yes: full range of Motion Extremities: Yes: Normal Capillary Refill, Normal Inspection, Normal Range of Motion, Non-Tender Neurological: Yes: ict account manager II-XII NML intact, Fully Oriented, Alert, Motor Strength 5/5 Integumentary: Yes: Normal Color, Dry, Warm, Other (dry skin noted on bilateral lower extremities) - Diagnostic (1) Alcohol dependence with uncomplicated withdrawal Current Visit: No Status: Acute (2) Nicotine dependence Current Visit: No Status: Acute Qualifiers: Nicotine product type: cigarettes Substance use status: in withdrawal Qualified Code(s): F17.213 - Nicotine dependence, cigarettes, with withdrawal (3) Cocaine dependence, uncomplicated Current Visit: No Status: Chronic (4) HIV (human immunodeficiency virus infection) Current Visit: No Status: Chronic Qualifiers: HIV symptom status: asymptomatic Qualified Code(s): Z21 - Asymptomatic human immunodeficiency virus [HIV] infection status (5) HTN (hypertension) Current Visit: No Status: Chronic Qualifiers: Hypertension type: essential hypertension Qualified Code(s): I10 - Essential (primary) hypertension (6) Neurogenic bladder Current Visit: No Status: Chronic (7) Self-catheterizes urinary bladder Current Visit: No Status: Chronic (8) Substance induced mood disorder Current Visit: No Status: Suspected Breathalyzer - Breathalyzer Breathalyzer: 0 Urine Drug Screen - Test Device Lot number: [id number] Expiration date: 11/08/20 - Control Is test valid?: Yes - Results Drug screen NEGATIVE: No Urine drug screen results: VICENTE-Cocaine Inpatient Rehab Admission - Rehab Decision to Admit Inpatient rehab admission?: Yes - Initial Determination Are CD services needed?: Yes Free of communicable disease: Yes Not in need of hospitalization: Yes - Rehab Admission Criteria Previous failed treatment: Yes Poor recovery environment: Yes Comorbidities: Yes Lacks judgement: Yes Patient is meeting Inpatient Rehab admission criteria:: Yes (requires inpatient rehab, does not meet criteria for detox)
[2019-03-28] MEDS ORDERED: IBUPROFEN 400 MG TABLET (FP) PO PRN (16:48)
[2019-03-28] MEDS ORDERED: MAGNESIUM CITRATE 300 ML BOTTLE PO PRN (16:48)
[2019-03-28] MEDS ORDERED: guaiFENesin 200 MG/10 ML 10 ML UNIT-DOSE CUPS PO PRN (16:48)
[2019-03-28] MEDS ORDERED: P-EPHED 60MG/TRIPROLIDI 2.5MG TABLET PO PRN (16:48)
[2019-03-28] MEDS ORDERED: MAGNESIUM HYDROX 2400MG/30ML ORAL SUSPENSION 30 ML CUP PO PRN (16:48)
[2019-03-28] MEDS ORDERED: LOPERAMIDE HCL 2 MG CAPSULE PO PRN (16:48)
--- NOTE | 2019-03-28 17:09 | PN ---
Teaching Attending Note Name of Resident: Rivera Camejo ATTENDING PHYSICIAN STATEMENT I saw and evaluated the patient. I reviewed the resident's note and discussed the case with the resident. I agree with the resident's findings and plan as documented. SUBJECTIVE: 58 year old male presenting for alcohol and cocaine abuse. reports 1 pint and 2-3 x 24oz cans every other day, relapsed 4 months ago due to relationship issues. Denies seizures, blackouts, falls, head hits. Longest period of sobriety: 3 years, while incarcerated. Cocaine: 2 x/week. Medical History: HTN, HIV + (CD4 800, viral load undetectable in November) care through [facility], neurogenic bladder from [facility] OBJECTIVE: wnwd , NAD Vital Signs - 24 hr 03/28/19 13:41 Temperature 98.8 F Pulse Rate 73 Respiratory 16 Rate Blood Pressure 143/79 ASSESSMENT AND PLAN: Alcohol use, episodic - rehab Cocaine use, episodic.
[2019-03-28] MEDS: THIAMINE HCL 100 MG TABLET (FP) PO SCH (21:20)
[2019-03-28] MEDS: MELATONIN 5 MG TABLETS PO PRN (21:21)
[2019-03-28] MEDS: MAG HYDROX/AL HYDROX/SIMETH 30 ML UNIT-DOSE CUP PO PRN (21:22)
[2019-03-29] MEDS: PRENATAL VITAMINS W/ FOLIC ACID TABLET (FP) PO SCH (10:17)
[2019-03-29] MEDS: MAG HYDROX/AL HYDROX/SIMETH 30 ML UNIT-DOSE CUP PO PRN (10:19)
[2019-03-29] MEDS: NIFEdipine E.R 60 MG TABLET (UD) PO SCH (11:00)
[2019-03-29 11:29] LABS: HEMATOCRIT 34.6 % (35.4-49); HEMOGLOBIN 11.4 GM/dL (11.7-16.9); MCH 29.3 pg (25.7-33.7); MEAN CELL VOLUME 88.8 fl (80-96); MEAN PLT VOLUME 7.6 fl (7.5-11.1); PLATELET COUNT 345 K/MM3 (134-434); RDW 16.3 % (11.9-15.9); WHITE BLOOD COUNT 3.6 K/mm3 (4.0-10.0)
[2019-03-29 11:36] LABS: ALBUMIN 3.1 g/dl (3.4-5.0); BILIRUBIN,TOTAL 0.3 mg/dL (0.2-1); BLOOD UREA NITROGEN 9.2 mg/dL (7-18); CALCIUM 8.5 mg/dL (8.5-10.1); POTASSIUM 3.7 mmol/L (3.5-5.1); TOT PROT 7.4 g/dl (6.4-8.2)
[2019-03-29] MEDS: THIAMINE HCL 100 MG TABLET (FP) PO SCH (21:51)
[2019-03-29] MEDS: MELATONIN 5 MG TABLETS PO PRN (21:51)
[2019-03-30] MEDS: NIFEdipine E.R 60 MG TABLET (UD) PO SCH (10:30)
[2019-03-30] MEDS: PRENATAL VITAMINS W/ FOLIC ACID TABLET (FP) PO SCH (10:31)
[2019-03-30] MEDS: MAG HYDROX/AL HYDROX/SIMETH 30 ML UNIT-DOSE CUP PO PRN (10:33)
[2019-03-30 13:59] LABS: PH,URINE 8.5 (5.0-8.0); URINE APPEARANCE CLEAR; URINE BILIRUBIN NEGATIVE (NEGATIVE); URINE COLOR YELLOW; URINE GLUCOSE (UA) NEGATIVE (NEGATIVE); URINE KETONE NEGATIVE (NEGATIVE); URINE LEUK ESTERASE NEGATIVE (NEGATIVE); URINE NITRITE NEGATIVE (NEGATIVE); URINE PROTEIN TRACE (NEGATIVE)
[2019-03-30] MEDS: THIAMINE HCL 100 MG TABLET (FP) PO SCH (21:39)
[2019-03-30] MEDS: MELATONIN 5 MG TABLETS PO PRN (21:39)
[2019-03-31] MEDS: NIFEdipine E.R 60 MG TABLET (UD) PO SCH (10:42)
[2019-03-31] MEDS: PRENATAL VITAMINS W/ FOLIC ACID TABLET (FP) PO SCH (10:42)
[2019-03-31] MEDS: MELATONIN 5 MG TABLETS PO PRN (21:40)
[2019-03-31] MEDS: THIAMINE HCL 100 MG TABLET (FP) PO SCH (21:41)
[2019-04-01] MEDS: PRENATAL VITAMINS W/ FOLIC ACID TABLET (FP) PO SCH (11:05)
[2019-04-01] MEDS: NIFEdipine E.R 60 MG TABLET (UD) PO SCH (11:05)
--- NOTE | 2019-04-01 12:56 | PN ---
[facility] Progress Note Note: Pt was seen by this investigative writer this late morning and is requesting to speak with the psychiatrist for "physical, emotional and psychological stress". Pt was spoken to with his counselor Chantale Corcoran in room but patient insists he is not detailing any further information anf just want to speak with the psychiatrist. reports hx of depression, however with no current medications. Pt has a tendency for angry outbursts. Pt had an episode of angry outburst in the community meeting this morning where he was verbalizing angry comments towards staff about not using the phone and lashed out stating "maybe I need to see the psych". Vital Signs - 24 hr 04/01/19 04/01/19 04/01/19 00:30 03:30 06:52 Temperature 97.7 F Pulse Rate 71 Respiratory 18 18 18 Rate Blood Pressure 119/75 04/01/19 04/01/19 06:54 11:15 Temperature 97.7 F 97.7 F Pulse Rate 71 77 Respiratory 18 18 Rate Blood Pressure 119/75 103/70 Laboratory Tests 03/29/19 03/29/19 03/29/19 10:20 10:20 10:20 WBC 3.6 L RBC 3.90 L Hgb 11.4 L Hct 34.6 L MCV 88.8 MCH 29.3 MCHC 33.0 RDW 16.3 H Plt Count 345 MPV 7.6 Sodium 142 Potassium 3.7 Chloride 107 Carbon Dioxide 30 Anion Gap 5 L BUN 9.2 Creatinine 1.0 Est GFR (CKD-EPI)AfAm 95.73 Est GFR (CKD-EPI)NonAf 82.60 Random Glucose 92 Calcium 8.5 Total Bilirubin 0.3 AST 20 ALT 23 Alkaline Phosphatase 60 Total Protein 7.4 Albumin 3.1 L Urine Color Urine Appearance Urine pH Ur Specific [place] Urine Protein Urine Glucose (UA) Urine Ketones Urine Blood Urine Nitrite Urine Bilirubin Urine Urobilinogen Ur Leukocyte Esterase RPR Titer Nonreactive 03/30/19 11:55 WBC RBC Hgb Hct MCV MCH MCHC RDW Plt Count MPV Sodium Potassium Chloride Carbon Dioxide Anion Gap BUN Creatinine Est GFR (CKD-EPI)AfAm Est GFR (CKD-EPI)NonAf Random Glucose Calcium Total Bilirubin AST ALT Alkaline Phosphatase Total Protein Albumin Urine Color Yellow Urine Appearance Clear Urine pH 8.5 H D Ur Specific [place] 1.024 Urine Protein Trace Urine Glucose (UA) Negative Urine Ketones Negative Urine Blood Negative Urine Nitrite Negative Urine Bilirubin Negative Urine Urobilinogen 1.0 Ur Leukocyte Esterase Negative RPR Titer A/P Pt with hx of Depression Anger/anxiety Pt ordered for psych consult today
[2019-04-01] MEDS: THIAMINE HCL 100 MG TABLET (FP) PO SCH (22:24)
[2019-04-02] MEDS: MAG HYDROX/AL HYDROX/SIMETH 30 ML UNIT-DOSE CUP PO PRN (06:54)
[2019-04-02] MEDS: NIFEdipine E.R 60 MG TABLET (UD) PO SCH (10:57)
[2019-04-02] MEDS: PRENATAL VITAMINS W/ FOLIC ACID TABLET (FP) PO SCH (10:57)
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
[2019-04-02] MEDS ORDERED: COLLOIDAL OATMEAL 1 BAR EACH TP PRN (14:02)
[2019-04-02] MEDS: MELATONIN 5 MG TABLETS PO PRN (21:41)
[2019-04-02] MEDS: THIAMINE HCL 100 MG TABLET (FP) PO SCH (21:41)
[2019-04-03] MEDS: MENTHOL/PHENOL 1 EACH UD MM PRN ×3 (06:36→21:58)
[2019-04-03] MEDS: NIFEdipine E.R 60 MG TABLET (UD) PO SCH (10:49)
[2019-04-03] MEDS: PRENATAL VITAMINS W/ FOLIC ACID TABLET (FP) PO SCH (10:49)
[2019-04-03] MEDS: MELATONIN 5 MG TABLETS PO PRN (21:57)
[2019-04-03] MEDS: THIAMINE HCL 100 MG TABLET (FP) PO SCH (21:58)
[2019-04-04] MEDS: MENTHOL/PHENOL 1 EACH UD MM PRN ×3 (06:52→21:38)
[2019-04-04] MEDS: PRENATAL VITAMINS W/ FOLIC ACID TABLET (FP) PO SCH (10:52)
[2019-04-04] MEDS: NIFEdipine E.R 60 MG TABLET (UD) PO SCH (10:52)
--- NOTE | 2019-04-04 12:10 | PN ---
[facility] Progress Note Note: c/o sore throat x 2 days. Denies cough, runny nose or difficulty with breathing. Vital Signs - 24 hr 04/04/19 04/04/19 00:30 07:26 Temperature 97.5 F L Pulse Rate 66 Respiratory 18 18 Rate Blood Pressure 102/72 Throat:No redness, swelling or exudate noted. Esophageal MMM and wnl. A/P Dryness night mouth breathing Plan:D/w pt Cepastat lozenges as directed Increase po fluids soothe with tea with honey/lemon pt agreeable with poc pt to report to staff if worsening symptoms
[2019-04-04] MEDS: MELATONIN 5 MG TABLETS PO PRN (21:36)
[2019-04-04] MEDS: THIAMINE HCL 100 MG TABLET (FP) PO SCH (21:36)
[2019-04-05] MEDS: MENTHOL/PHENOL 1 EACH UD MM PRN ×3 (02:36→10:21)
[2019-04-05] MEDS: ACETAMINOPHEN 325 MG TABLET (FP) PO PRN ×3 (02:36→21:47)
[2019-04-05] MEDS: NIFEdipine E.R 60 MG TABLET (UD) PO SCH (10:21)
[2019-04-05] MEDS: PRENATAL VITAMINS W/ FOLIC ACID TABLET (FP) PO SCH (10:21)
[2019-04-05] MEDS ORDERED: hydrOXYzine PAMOATE 25 MG CAPSULE (FP) PO PRN (10:55)
--- NOTE | 2019-04-05 19:02 | PN ---
S Progress Note Note: having sore throat with pain left side of neck seen yesterday no responded to fluid,and cepacol lozenge cervical lymphadenitis uri treatment amoxicillin 500 mgs po now then tid for 7 days fluid
[2019-04-05] MEDS: THIAMINE HCL 100 MG TABLET (FP) PO SCH (21:46)
[2019-04-05] MEDS: MELATONIN 5 MG TABLETS PO PRN (21:46)
[2019-04-05] MEDS: AMOXICILLIN 500 MG CAPSULE (FP) PO SCH (21:48)
[2019-04-06] MEDS: ACETAMINOPHEN 325 MG TABLET (FP) PO PRN (03:14)
[2019-04-06] MEDS: MENTHOL/PHENOL 1 EACH UD MM PRN (03:21)
[2019-04-06] MEDS: AMOXICILLIN 500 MG CAPSULE (FP) PO SCH ×3 (06:29→21:38)
[2019-04-06 09:39] VITALS: BP 118/72; PULSE 76; TEMP 98.3
[2019-04-06] MEDS: NIFEdipine E.R 60 MG TABLET (UD) PO SCH (10:33)
[2019-04-06] MEDS: PRENATAL VITAMINS W/ FOLIC ACID TABLET (FP) PO SCH (10:33)
[2019-04-06] MEDS: THIAMINE HCL 100 MG TABLET (FP) PO SCH (21:38)
[2019-04-06] MEDS: MELATONIN 5 MG TABLETS PO PRN (21:38)
[2019-04-07] MEDS: AMOXICILLIN 500 MG CAPSULE (FP) PO SCH (06:52)
--- NOTE | 2019-04-07 08:44 | DS ---
[facility] Rehab Discharge Summary - [facility] Rehab Discharge Summary Admission Date: 03/28/19 Discharge Date: 04/07/19 - History Present History: Alcohol dependence, Cocaine dependence Additional Comments: Pt is a 58 y/o male with a hx of JESSICA admitted to rehab and requesting for early discharge today for personal reasons. Pt was seen by his counselor and has been referred to aftercare. Pt reports primary care at [facility] and will follow up as needed. Pertinent Past History: Anemia HTN HIV+(No meds) Neurogenic bladder(Self Catheterization) - Discharge Physical Exam Vital Signs: Vital Signs Temperature 98.3 F 04/06/19 09:38 Pulse Rate 76 04/06/19 09:38 Respiratory Rate 18 04/07/19 07:17 Blood Pressure 118/72 04/06/19 09:38 O2 Sat by Pulse Oximetry (%) Pertinent Admission Physical Exam Findings: Laboratory Tests 03/29/19 03/29/19 03/29/19 10:20 10:20 10:20 WBC 3.6 L RBC 3.90 L Hgb 11.4 L Hct 34.6 L MCV 88.8 MCH 29.3 MCHC 33.0 RDW 16.3 H Plt Count 345 MPV 7.6 Sodium 142 Potassium 3.7 Chloride 107 Carbon Dioxide 30 Anion Gap 5 L BUN 9.2 Creatinine 1.0 Est GFR (CKD-EPI)AfAm 95.73 Est GFR (CKD-EPI)NonAf 82.60 Random Glucose 92 Calcium 8.5 Total Bilirubin 0.3 AST 20 ALT 23 Alkaline Phosphatase 60 Total Protein 7.4 Albumin 3.1 L Urine Color Urine Appearance Urine pH Ur Specific [place] Urine Protein Urine Glucose (UA) Urine Ketones Urine Blood Urine Nitrite Urine Bilirubin Urine Urobilinogen Ur Leukocyte Esterase RPR Titer Nonreactive 03/30/19 11:55 WBC RBC Hgb Hct MCV MCH MCHC RDW Plt Count MPV Sodium Potassium Chloride Carbon Dioxide Anion Gap BUN Creatinine Est GFR (CKD-EPI)AfAm Est GFR (CKD-EPI)NonAf Random Glucose Calcium Total Bilirubin AST ALT Alkaline Phosphatase Total Protein Albumin Urine Color Yellow Urine Appearance Clear Urine pH 8.5 H D Ur Specific [place] 1.024 Urine Protein Trace Urine Glucose (UA) Negative Urine Ketones Negative Urine Blood Negative Urine Nitrite Negative Urine Bilirubin Negative Urine Urobilinogen 1.0 Ur Leukocyte Esterase Negative RPR Titer Pt will follow up with his PCP with copies of lab result for medical management. - Treatment Discharge Condition: Discharge condition good Hospital Course: Rehabilitated safely and responded well Cd aftercare referral accepted. Was Started on Amoxicillin over the weekend for Cervical Lymphadenitis(see note of 04/06/19) - Medication Discharge Medications: Ambulatory Orders Amoxicillin - [Amoxicillin 500mg Capsule -] 500 mg PO TID #20 capsule 04/05/19 - Medication-Assisted Treatment (MAT) Medication-Assisted Treatment (MAT): No - Discharge Instructions Diet, activity, other medical instructions: Diet:BETH Activity: oob ad lester Other medical instructions:Follow up with your PCP at [facility] for medical management within 1 week after discharge. Follow up with CD aftercare referral as recommended. Pt instructed to Complete course of Amoxicillin as ordered - Diagnosis (1) Alcohol dependence Status: Chronic Qualifiers: Substance use status: uncomplicated Qualified Code(s): F10.20 - Alcohol dependence, uncomplicated (2) Cocaine dependence Status: Chronic Qualifiers: Substance use status: uncomplicated Qualified Code(s): F14.20 - Cocaine dependence, uncomplicated (3) Nicotine dependence Status: Chronic Qualifiers: Nicotine product type: cigarettes Substance use status: uncomplicated Qualified Code(s): F17.210 - Nicotine dependence, cigarettes, uncomplicated (4) HIV (human immunodeficiency virus infection) Status: Chronic Qualifiers: HIV symptom status: asymptomatic Qualified Code(s): Z21 - Asymptomatic human immunodeficiency virus [HIV] infection status (5) HTN (hypertension) Status: Chronic Qualifiers: Hypertension type: essential hypertension Qualified Code(s): I10 - Essential (primary) hypertension (6) Neurogenic bladder Status: Chronic (7) Self-catheterizes urinary bladder Status: Chronic - Follow-up Referral Minutes to complete discharge: 20 - AMA Did Patient Leave Against Medical Advice: No Additional Comments: Pt reports he has his own PCP and medications at home.
[2019-04-07] MEDS: PRENATAL VITAMINS W/ FOLIC ACID TABLET (FP) PO SCH (09:22)
[2019-04-07] MEDS: NIFEdipine E.R 60 MG TABLET (UD) PO SCH (09:22)
== END 2019-04-07 09:45 | disposition home or self-care (01) | DRG 772 ==
LOC: YASAS 12:33 → Y5N 17:08
PROVIDERS: ADMIT Neuromusculoskeletal Medicine & OMM; ATTEND Neuromusculoskeletal Medicine & OMM
PROC: HZ42ZZZ Group Counseling for Substance Abuse Treatment, Cognitive-Behavioral (ICD-10-PCS; principal; 2019-03-28)
DX: F10.20 Alcohol dependence, uncomplicated (principal); F14.20 Cocaine dependence, uncomplicated; F17.210 Nicotine dependence, cigarettes, uncomplicated; F19.282 Other psychoactive substance dependence with psychoactive substance-induced sleep disorder; I10 Essential (primary) hypertension; Z21 Asymptomatic human immunodeficiency virus [HIV] infection status; N31.9 Neuromuscular dysfunction of bladder, unspecified; J06.9 Acute upper respiratory infection, unspecified; L04.0 Acute lymphadenitis of face, head and neck; E01.1 Iodine-deficiency related multinodular (endemic) goiter; Z96.0 Presence of urogenital implants
CPT/HCPCS: 36415; 80053; 81003; 85027; 86593